=== PATIENT | male | born 2000 ===

== ENCOUNTER 2018-04-27 13:41 | Emergency (ER) | payer SELFPAY ==
[2018-04-27] MEDS ORDERED: Tdap Vaccine 0.5 ml Vial (10-64 yrs) IM ONE ×2 (14:16→14:51)
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
[2018-04-27 15:19] LABS: BASO % 0.4 % (0.0-2.0); HEMOGLOBIN 16.7 g/dL (12.0-18.0); LYMPH # 0.9 K/uL (1.0-4.3); LYMPH % 9.6 % (20.0-40.0); MEAN CELL VOLUME 88.1 fl (80.0-94.0); MEAN CORPUSCULAR HEMOGLOBIN 31.1 pg (27.0-31.0); MEAN CORPUSCULAR HGB CONC 35.3 g/dL (33.0-37.0); MEAN PLATELET VOLUME 9.3 fl (7.2-11.7); MONO # 0.5 K/uL (0.0-0.8); MONO % 5.8 % (0.0-10.0); NEUT # 7.9 K/uL (1.8-7.0); NEUT % 84.2 % (50.0-75.0); PLATELET COUNT 216 K/uL (130-400); RBC 5.36 Mil/uL (4.40-5.90); RED CELL DISTRIBUTION WIDTH 12.3 % (11.5-14.5); WHITE BLOOD COUNT 9.4 K/uL (4.8-10.8)
[2018-04-27 15:20] LABS: URINE BILIRUBIN NEGATIVE (NEGATIVE); URINE BLOOD NEGATIVE (NEGATIVE); URINE CLARITY CLEAR (Clear); URINE COLOR YELLOW (YELLOW); URINE GLUCOSE (UA) NEG (Normal); URINE LEUKOCYTE ESTERASE NEG Leu/uL (Negative); URINE PROTEIN NEGATIVE (NEGATIVE)
[2018-04-27 15:26] LABS: INR 1.1; PROTHROMBIN TIME 12.6 Seconds (9.8-13.1)
[2018-04-27 15:27] LABS: ALB/GLOB RATIO 1.6 (1.0-2.1); ALT/SGPT 29 U/L (21-72); AST/SGOT 34 U/L (17-59); BLOOD UREA NITROGEN 12 mg/dl (9-20); CALCIUM 9.9 mg/dL (8.4-10.2); GFR AFRICAN-AMERICAN > 60; GFR NON-AFRICAN AMERICAN > 60
[2018-04-27 15:28] LABS: PARTIAL THROMBOPLASTIN TIME 37.3 Seconds (25.6-37.1)
[2018-04-27 15:38] LABS: BARBITURATES, UR NEGATIVE (NEGATIVE); BENZODIAZEPINES, UR NEGATIVE (NEGATIVE); OPIATES, UR NEGATIVE (NEGATIVE); PHENCYCLIDINE, UR NEGATIVE (NEGATIVE)
[2018-04-27] MEDS ORDERED: Iohexol 300 100 ML IJ ONE (16:16)
[2018-04-27] MEDS ORDERED: Sodium Chloride 0.9% 50 ML IV ONE (16:16)
--- NOTE | 2018-04-27 17:11 | CT ---
Date of service: 04/27/2018 PROCEDURE: CT Chest, Abdomen and Pelvis with intravenous contrast HISTORY: abd pain, back pain, bruising COMPARISON: None available. TECHNIQUE: IV dose administered: 95 mL Omnipaque 300 Radiation dose: Total exam DLP = 333.54 mGy-cm. This CT exam was performed using one or more of the following dose reduction techniques: Automated exposure control, adjustment of the mA and/or kV according to patient size, and/or use of iterative reconstruction technique. FINDINGS: CT CHEST WITH CONTRAST: LUNGS: Clear. No nodule, mass or consolidation. MEDIASTINUM: Unremarkable. Normal caliber aorta and pulmonary arterial trunk. No aortic dissection. Normal size heart. LYMPH NODES: Unremarkable. PLEURA: Unremarkable. No pneumothorax. No pleural fluid. BONES: Unremarkable. OTHER FINDINGS: None. CT ABDOMEN AND PELVIS: LIVER: Unremarkable. No gross lesion or ductal dilatation. GALLBLADDER AND BILE DUCTS: Unremarkable. PANCREAS: Unremarkable. No gross lesion or ductal dilatation. SPLEEN: Unremarkable. ADRENALS: Unremarkable. No mass. KIDNEYS AND URETERS: Unremarkable. No hydronephrosis. No solid mass. VASCULATURE: Unremarkable. No aortic aneurysm. BOWEL: Unremarkable. No obstruction. No gross mural thickening. APPENDIX: Normal appearance PERITONEUM: Unremarkable. No free fluid. No free air. LYMPH NODES: No retroperitoneal or pelvic lymphadenopathy. Numerous shotty subcentimeter nodes in the small bowel mesenteric consistent with nonspecific mesenteric adenitis. BLADDER: Unremarkable. REPRODUCTIVE: Normal prostate BONES: No acute fracture. OTHER FINDINGS: None. IMPRESSION: Findings consistent with nonspecific mesenteric adenitis. No pulmonary infiltrate. No additional abnormality.
[2018-04-27 17:45] LABS: BANDS 3 % (0-2); LYMPHOCYTE 14 % (20-50); MONOCYTE 6 % (0-10); NEUTROPHIL 77 % (42-75); TOTAL CELLS COUNTED 100
[2018-04-27 17:46] LABS: PLATELET ESTIMATE NORMAL (NORMAL)
[2018-04-27] MEDS ORDERED: Bacitracin OINT 15GM TOP STA (17:50)
[2018-04-27 18:05] VITALS: BP 135/74; PULSE 78; RESP 15; TEMP 98.1
[2018-04-27 18:45] VITALS: O2SAT 99
== END 2018-04-27 18:05 ==
LOC: H.ER 13:41
DX: I88.0 Nonspecific mesenteric lymphadenitis (principal); S30.810A Abrasion of lower back and pelvis, initial encounter; Y08.09XA Assault by strike by other specified type of sport equipment, initial encounter
CPT/HCPCS: 71260; 74177; 80053; 81003; 85025; 85610; 85730; 86850; 86900; 90471; 90715; 99284; G0480; Q9967